=== PATIENT | male | born 1950 | race Caucasian/White ===

== ENCOUNTER 2019-10-17 08:00 | Outpatient (CLI) | payer MEDICARE, OTHER, SELFPAY ==
--- NOTE | 2019-10-17 08:25 | XR_ITS ---
WS: [id number] PROCEDURE: XR chest 2V* [id number] CLINICAL INFORMATION: PNEUMONIA COMPARISON: June 16, 2018 FINDINGS: Heart: Normal cardiac silhouette. Lungs: Small left pleural effusion with subsegmental atelectasis left lung base. Slight patchy infilt rate visualized on the lateral view posteriorly. Correlation for pneumonia. Right lung is well aerated. Mild thoracic curve. Ankylosis thoracic spine. Bones: Normal visualized bony structures. XR/XR chest 2V* [id number] IMPRESSION: Small left pleural effusion with slight patchy infiltrate left lung base mechanic helper iorly. Recommend correlation for pneumonia.
== END 2019-10-17 08:01 | disposition home or self-care (01) ==
LOC: RADWPI 08:08
PROVIDERS: Family Provider Family Medicine; PCP Family Medicine; Visit Provider Family Medicine
DX: J18.9 Pneumonia, unspecified organism (principal); J90 Pleural effusion, not elsewhere classified
CPT/HCPCS: 71046

== ENCOUNTER 2020-02-18 07:42 | Outpatient (CLI) | payer MEDICARE, OTHER, SELFPAY ==
--- NOTE | 2020-02-18 | MR_ITS ---
WS: [id number] INDICATION: Osteomyelitis TECHNIQUE: MRI of the right foot without and with gadolinium enhancement. Multiplanar T1, T2, proton density, and STIR imaging was obtained. Post gadolinium imaging was obtained with fat saturation tech nique FINDINGS: Images are somewhat limited due to motion artifact. Diffuse soft tissue edema with skin thi ckening and enhancement involving the soft tissues overlying the great toe consistent with cellulitis . Diffuse replacement of the normal fatty bone marrow signal involving the great toe proximal and dista l phalanx with diffuse abnormal gadolinium enhancement. In addition enhancing phlegmon/abscess involv ing the first DIP joint extending medially along the great toe. This collection appears complex and d oes not appear drainable. Findings are compatible with osteomyelitis involving the first proximal and distal phalanx. Tiny amount of edema in the head of the first metatarsal medially likely reactive. N o significant fluid in the first MTP joint. Degenerative arthritis involving the head of the first metatarsal with subchondral cystic change. Nor mal bone marrow signal is preserved. MR/MR foot RT wo/w con [id number] IMPRESSION: 1. Replacement of the normal bone marrow signal compatible with osteomyelitis involving the first proximal and distal phalanges. 2. In addition, complex enhancing phlegmon/abscess involving the first DIP mesfin nt. This measures approximately 1.4 x 1.1 cm extending medially This is complex and does not appear drainable. 3. Diffuse cellulitis involving the soft tissues overlying the great toe.
== END 2020-02-18 07:43 | disposition home or self-care (01) ==
LOC: RADSHAW 07:46
PROVIDERS: PCP Family Medicine; Visit Provider Family Medicine
DX: M86.171 Other acute osteomyelitis, right ankle and foot (principal); L03.031 Cellulitis of right toe
CPT/HCPCS: 73720; A9579

== ENCOUNTER → 2020-02-19 17:10 | Outpatient (BNVA) | payer MEDICARE, OTHER, SELFPAY | PROVIDERS: PCP Family Medicine; Referring Provider Family Medicine; Visit Provider Podiatrist Foot & Ankle Surgery | DX: E11.621 Type 2 diabetes mellitus with foot ulcer (principal); L97.509 Non-pressure chronic ulcer of other part of unspecified foot with unspecified severity; L03.031 Cellulitis of right toe; Z11.59 Encounter for screening for other viral diseases; M79.89 Other specified soft tissue disorders | CPT/HCPCS: 73630; 87070; 87075; 87077; 87186; 87205; 87635 ==

== ENCOUNTER 2020-02-20 07:33 | Day surgery (SDC) | payer MEDICARE, OTHER, SELFPAY ==
--- NOTE | 2020-02-20 08:15 | ECG_ITS ---
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 Measurements Intervals [place] Rate: 61 P: 20 MO: 235 QRS: 40 QRSD: 97 T: 23 QT: 397 QTc: 401 Interpretive Statements SINUS RHYTHM WITH FIRST DEGREE AV BLOCK No previous ECG available for comparison Electronically Signed On 02-20-2020 20:37:27 CDT by Derian Yuen M.D. [id number]
[2020-02-20 08:21] VITALS: BP 164/78; PULSE 63; RESP 18; TEMP 36.6; O2SAT 99; BMI 38.1
[2020-02-20 08:21] LABS: Glucose Point of Care 103 mg/dL (70-110)
[2020-02-20 08:29] LABS: Basophils # 0.1 10^3/uL (0.0-0.1); Basophils % 0.9 %; Eosinophils # 0.1 10^3/uL (0.0-0.8); Eosinophils % 1.6 %; Hematocrit 40.9 % (42.0-52.0); Hemoglobin 12.7 g/dL (11.7-16.6); Lymphocytes # 2.1 10^3/uL (0.8-4.8); Lymphocytes % 32.2 %; Mean Corpuscular HGB Conc 31.1 g/dL (30.0-36.0); Mean Corpuscular Hemoglobin 27.5 pg (28.0-34.0); Mean Corpuscular Volume 88.5 fL (80-94); Mean Platelet Volume 10.9 fL (7.4-10.4); Monocytes # 0.6 10^3/uL (0.2-0.9); Monocytes % 9.1 %; Neutrophils % 55.9 %; Nucleated Red Blood Cells % 0 %; Platelet Count 234 10^3/cmm (130-400); Red Blood Count 4.62 10^6/uL (4.1-5.3); Red Cell Distribution Width 14.1 % (12.1-15.1); White Blood Count 6.5 10^3/uL (4.0-10.0)
[2020-02-20] MEDS: sodium chloride 0.9% 1,000 ML 30 ML IV (08:30)
--- NOTE | 2020-02-20 08:46 | ANES.PREANE2 ---
Pre-Anesthetic Assessment Pre-Anesthetic Assessment: Height/Weight: Height 1.85 m Weight 131.088 kg Temp Pulse Resp BP Pulse Ox 97.9 F 63 18 164/78 99 02/20/20 08:21 02/20/20 08:21 02/20/20 08:21 02/20/20 08:21 02/20/20 08:21 Preop Diagnosis: Osteomyelitis right hallux Proposed Procedure: Operation Date: 02/20/20 09:00 Proposed Procedures p Incision And Drainage w/ bone biopsy right foot 00880 I97.509(Right) - Rafael Cardoza DPM Familial anesthetic complications: None Was Beta Jose taken within 24 hours: Yes Last intake: Intake Last Liquid Date 02/19/20 Last Liquid Time 23:30 Last Solid Date 02/19/20 Last Solid Time 22:30 Social: Social History: No alcohol and No tobacco Exam: Pre-Anes Outpt Exam: alert, oriented x 3, clear to auscultation bilaterally and regular rate & rhythm Airway: Cervical ROM: WNL MP: 2 Dentition: Full Pulmonary: Pulmonary: None reported CV/HEM: CV/HEM: CAD (stents in 2005, only on ASA now, no chest pains, able to achieve > 4 METS) and HTN : : None reported Hepatic: Hepatic: None reported Metabolic: Metabolic: None reported Musc/skel: Musc/skel: None reported Neuropsych: Neuropsych: None reported Anesthetic Plan: ASA status: 3 Anesthesia: MAC Risk of > 500 ml blood loss (7ml/kg in children): No Meds/Allergies Current Medications: Current Medications Generic Name Dose Route Start Last Admin Trade Name Freq PRN Reason Stop Dose Admin Sodium Chloride 1,000 mls @ 30 ml s/hr 02/20/20 08:00 02/20/20 08:30 Sodium Chloride 0.9% IV 02/21/20 07:59 30 mls/hr .Q24H FRANDY Administration PFSH Anesthesia PFSH: Medical History (Updated 02/19/20 @ 20:11 by Rafael Cardoza DPM) Coronary artery disease involving autologous artery coronary bypass graft Gout Hyperlipidemia Hypertension Pneumonia Social History (Updated 02/19/20 @ 16:08 by Gilma Sheppard LPN) Smoking and tobacco status: former smoker Data Anesthesia CBC & Chem 7: 02/20/20 08:20 10/23/20 08:20 Other Labs: Laboratory Results - last 48 hr 02/20/20 02/20/20 08:18 08:20 WBC 6.5 RBC 4.62 Hgb 12.7 Hct 40.9 L MCV 88.5 MCH 27.5 L MCHC 31.1 RDW 14.1 Plt Count 234 MPV 10.9 H Neut % (Auto) 55.9 Lymph % (Auto) 32.2 [place] % (Auto) 9.1 Eos % (Auto) 1.6 Baso % (Auto) 0.9 Neut # (Auto) 3.60 Lymph # (Auto) 2.1 [place] # (Auto) 0.6 Eos # (Auto) 0.1 Baso # (Auto) 0.1 Nucleated RBC % (auto) 0 Nucleated RBCs # 0.0 POC Glucose 103 Cardiac Studies: No Data to Display
[2020-02-20 08:48] LABS: Anion Gap 14.7 (5-19); Blood Urea Nitrogen 15 mg/dL (8-23); Calcium 9.3 mg/dL (8.5-10.5); Carbon Dioxide 22 mmol/L (22-29); Chloride 103 mmol/L (98-107); Glomerular Filtration Rate 96.1 mL/min (90-130); Glucose 105 mg/dL (65-115); Osmolality Calculated 281 mOsm/kg (285-295); Potassium 4.7 mmol/L (3.5-5.1); Sodium 135 mmol/L (136-145)
--- NOTE | 2020-02-20 10:01 | W.PM.OPSUD ---
Surgery/Procedure H&P Update DATE OF PROCEDURE: February 20, 2020 DATE H&P PERFORMED: 02/19/20 H&P UPDATE INFORMATION: I have reviewed H&P completed within last 30 days, I have examined patient prior to procedure, No changes to prior documentation and H&P is in [facility] [place] on date indicated PREOP DIAGNOSIS: Osteomyelitis right hallux PLANNED PROCEDURE: Operation Date: 02/20/20 09:00 Proposed Procedures p Incision And Drainage w/ bone biopsy right foot 67852 I97.509(Right) - Rafael Cardoza DPM
--- NOTE | 2020-02-20 10:28 | P.MISC_ITS ---
Miscellaneous Note Note: Patient: TRAVIS Jack VISHNU ID: [id number] Note: All result statuses are Final unless otherwise noted. Patient Note: FASTING:UNKNOWN Patient Note: Patient Note: FASTING: UNKNOWN Tests: (1) CULTURE, AEROBIC BACTERIA (4550) ! CULTURE, AEROBIC BACTERIA [A] * *1 CULTURE, AEROBIC BACTERIA Micro Number: [id number] Test Status: Final Specimen Source: FOOT, RIGHT Specimen Quality: Adequate Result: Heavy growth of Myroides species COMMENT: Skin maria victoria also present. Myroides sp. INT LIAM CEFEPIME I 16 CEFTAZIDIME R >=64 CIPROFLOXACIN S 1 GENTAMICIN R >=16 IMIPENEM I 4 LEVOFLOXACIN S 0.5 PIP/TAZOBACTAM I 32 TOBRAMYCIN R >=16 TRIMETHOPRIM/SULFA R >=320 S=Susceptible I=Intermediate R=Resistant * = Not Tested NR = Not Reported NN = See Therapy Comments Note: An exclamation matt (!) indicates a result that was not dispersed into the flowsheet. Document Creation Date: 02/16/2020 12:50 PM (1) Order result status: Final Collection or observation date-time: 02/12/2020 08:56:00 Requested date-time: Receipt date-time: 02/12/2020 08:59:00 Reported date-time: 02/16/2020 12:40:00 Referring Physician: Ordering Physician: KENNEDY Andrewsjspurcecelia) Specimen Source: Source: LAB Filler Order Number: [id number] Lab site: [place] [facility] [place] [id number] [facility] [id number] Maurisio Ham D.O.
--- NOTE | 2020-02-20 10:33 | PM.MISC ---
Miscellaneous Note Note: Patient: TRAVIS Jack VISHNU ID: OMID [id number] Note: All result statuses are Final unless otherwise noted. Patient Note: FASTING:UNKNOWN Patient Note: Patient Note: FASTING: UNKNOWN Tests: (1) CULTURE, AEROBIC BACTERIA (4550) ! CULTURE, AEROBIC BACTERIA [A] * *1 CULTURE, AEROBIC BACTERIA Micro Number: [id number] Test Status: Final Specimen Source: FOOT, RIGHT Specimen Quality: Adequate Result: Heavy growth of Staphylococcus aureus Heavy growth of Group B Streptococcus isolated Beta-hemolytic streptococci are predictably susceptible to Penicillin and other beta-lactams. Susceptibility testing not routinely performed. Please contact the laboratory within 3 days if susceptibility testing is desired. COMMENT: Additional organisms of questionable significance were isolated that normally do not warrant identification and susceptibilities. Please contact the laboratory within three days if identification and susceptibilities are clinically indicated. S.aureus INT LIAM CIPROFLOXACIN S <=0.5 CLINDAMYCIN S <=0.25 ERYTHROMYCIN S <=0.25 GENTAMICIN S <=0.5 LEVOFLOXACIN S <=0.12 MOXIFLOXACIN S <=0.25 OXACILLIN S <=0.25 1 TETRACYCLINE S <=1 TRIMETHOPRIM/SULFA S <=10 VANCOMYCIN S 1 S=Susceptible I=Intermediate R=Resistant * = Not Tested NR = Not Reported NN = See Therapy Comments THERAPY COMMENTS Note 1: Oxacillin-susceptible staphylococci are susceptible to other penicillinase-stable penicillins (e.g. Methicillin, Nafcillin), beta- lactam/beta-lactamase inhibitor combinations, and cephems with staphylococcal indications, including Cefazolin. Note: An exclamation matt (!) indicates a result that was not dispersed into the flowsheet. Document Creation Date: 02/07/2020 11:28 AM (1) Order result status: Final Collection or observation date-time: 02/03/2020 10:42:00 Requested date-time: Receipt date-time: 02/03/2020 10:46:00 Reported date-time: 02/07/2020 11:21:00 Referring Physician: Ordering Physician: GLEN ZAYAS ([email or web address]) Specimen Source: Source: LAB Filler Order Number: [id number] Lab site: [facility] [id number] [facility] [id number] Francisco J Mccarthy D.O., MPH Supply Chain Specialist ID *[id number]
--- NOTE | 2020-02-20 10:41 | XRR_ITS ---
PROCEDURE INFORMATION: Exam: XR Right Foot Complete Exam date and time: 02/20/2020 11:20 AM Age: 69 years old Clinical indication: Pain; Foot; Right; Prior surgery; Surgery date: Post-operative (0-2 days); Surgery type: RT great toe; Patient HX: Osteomyelitis; Additional info: Post op TECHNIQUE: Imaging protocol: XR Right foot. Views: 3 or more views. COMPARISON: CR XR foot RT min 3V* [id number] 02/19/2020 4:34 PM FINDINGS: Bones/joints: There are bony destructive changes involving the head of the proximal phalanx and the distal phalanx which are consistent with history of osteomyelitis.Chronic degenerative changes are present in the foot with joint space narrowing osteophyte formation and bunion. There is chronic spurring on the calcaneus. Soft tissues: Gas is present in the soft tissues of the 1st toe. XR/XR foot RT min 3V* [id number] IMPRESSION: There is gas in the soft tissues of the 1st toe with destruction of changes of the proximal and distal phalanx is consistent with the history of osteomyelitis.
--- NOTE | 2020-02-20 11:02 | XRR_ITS ---
PROCEDURE INFORMATION: Exam: XR Chest, 1 View Exam date and time: 02/20/2020 11:16 AM Age: 69 years old Clinical indication: Device placement; Picc; Additional info: Picc placement TECHNIQUE: Imaging protocol: XR of the chest Views: 1 view. COMPARISON: CR XR chest 2V* [id number] 10/17/2019 8:29 AM FINDINGS: Tubes, catheters and devices: The right arm PICC projects in satisfactory position. Lungs: Unremarkable. No consolidation. Pleural space: Unremarkable. No pleural effusion. No pneumothorax. Heart/Mediastinum: Unremarkable. No cardiomegaly. Bones/joints: Unremarkable. XR/XR chest 1V portable [id number] IMPRESSION: Satisfactory PICC position. No acute abnormality.
[2020-02-20 11:04] VITALS: BP 112/74; PULSE 54; RESP 18; TEMP 36.1; O2SAT 99
[2020-02-20 11:26] VITALS: BP 141/81; PULSE 60; RESP 18; O2SAT 99
--- NOTE | 2020-02-20 11:44 | PC.NURSE ---
Been in touch with Dr Cardoza and Dr Murillo's nurse. Pt will have first dose of IV Rochephin 2 gm Q24H here before he leaves today via PICC line. Dr Murillo's nurse is setting up HH services through [facility] and they will continue with infusions at home. Patient and updated with plan of care and aggreeable.
--- NOTE | 2020-02-20 12:30 | ANE.PACU2 ---
Inpatient post-anesthesia follow up: Airway intact: Yes Vital signs: Temperature 97 F Pulse Rate 60 Respiratory Rate 18 Blood Pressure 141/81 Pulse Oximetry 99 Oxygen Delivery Me thod Room Air Oxygen Flow Rate Fraction of Inspir ed Oxygen Hydration adequate: Yes Nausea and vomiting: No Pain level: 1 Mental status: Baseline
--- NOTE | 2020-02-20 17:47 | P.OP_ITS ---
Operative Report Date of procedure: February 20, 2020 Pre-op Diagnosis: Osteomyelitis right hallux Post-op diagnosis: same Post-op Findings: Osteomyelitis right hallux Procedure Done: Incision and debridement right foot with bone biopsy Implants: 4-0 nylon Specimens removed/disposition: Right hallux proximal phalanx head sent to microbiology for Gram stain and culture Pathology: none sent Surgeon: Rafael Cardoza D.P.M. 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 He is not diabetic he does have decreased protective sensation. History of gout as well. X-ray and MRI consistent with osteomyelitis at the right hallux both distal and proximal phalanx with drainable fluid at the hallux interphalangeal joint on MRI. On exam he has a wound with a sinus tract dorsally and plantarly that probes to bone on the right hallux. Recommended surgical debridement, bone biopsy and PICC line placement for parenteral antibiotics long-term will require minimum 6 weeks in effort to preserve limb, this may result in amputation patient is aware this and wishes to proceed. Risks include pain, bleeding, numbness, infection, chronic swelling, failure to eradicate infection, need for further debridement, need for amputation, need for antibiotic therapy, damage to adjacent soft tissue structures, transfer pressure and transfer lesions. Procedure: Under mild sedation the patient was brought to the operating room and placed on the operating table in supine position. A timeout was performed. Anesthesia was then administered by the anesthesia service. Local anesthesia injected by myself consisting of 20 cc of 0.5% Marcaine plain and a right Colon block fashion. Well-padded pneumatic tourniquet applied to the right ankle. The right lower remedy was then scrubbed, prepped and draped utilizing normal aseptic technique. No Esmarch examination performed, tourniquet was inflated to 250 mmHg. Attention was directed to the dorsal medial aspect of the right hallux, a wound with a sinus tract or coursing dorsally was appreciated this probes directly to bone with localized erythema to the hallux without proximal lymphangitic streaking. At the superior medial aspect of the right hallux at the level interphalangeal joint a linear longitudinal incision was made down to bone, sagittal saw utilized to transect the base of the distal phalanx and head of the proximal phalanx, rongeur utilized to excise the head of the proximal phalanx this was devitalized had poor density and yellow/espinal color this was sent to microbiology for Gram stain and culture. Further debridement performed of nonviable soft tissue and bone sharp in nature utilizing pickups and 15 blade as well as rongure. Incision site was flushed with copious amounts of sterile saline solution. Incision was then reapproximated utilizing 4-0 nylon. Incision site was dressed with Adaptic, sterile 4 x 4, Kerlix and Terell wrap, cam boot reapplied. Tourniquet was deflated and a prompt hyperemic response was noted to the distal digits of the right foot including the hallux. Patient tolerated the procedure well and was transferred to the PACU with vital signs stable and vascular status intact. Also noted patient will receive PICC line for long-term antibiotics minimum [address] Workman will be managing the antibiotic therapies. Planning on following the patient on a weekly basis will perform serial x-rays and trend inflammatory markers to monitor his response to treatment.
== END 2020-02-20 12:32 | disposition home or self-care (01) ==
PROVIDERS: Anesthesiology; PCP Family Medicine; Visit Provider Podiatrist Foot & Ankle Surgery
PROC: (CPT 11044; principal; 2020-02-20 08:50)
DX: M86.8X7 Other osteomyelitis, ankle and foot (principal); I25.10 Atherosclerotic heart disease of native coronary artery without angina pectoris; Z95.5 Presence of coronary angioplasty implant and graft; I10 Essential (primary) hypertension; E78.5 Hyperlipidemia, unspecified; Z87.891 Personal history of nicotine dependence
CPT/HCPCS: 11044; 12345; 36416; 36569; 71045; 73630; 80048; 82962; 85025; 87070; 87077; 87176; 87186; 87205; 93005; 96365; J0690; J2250; J2704; J3490; J7030

== ENCOUNTER → 2020-02-27 09:21 | Outpatient (BNVA) | payer MEDICARE, OTHER, SELFPAY | PROVIDERS: PCP Family Medicine; Visit Provider Podiatrist Foot & Ankle Surgery | DX: L97.514 Non-pressure chronic ulcer of other part of right foot with necrosis of bone (principal); L03.031 Cellulitis of right toe; M21.611 Bunion of right foot | CPT/HCPCS: 73630 ==

== ENCOUNTER 2020-02-27 10:03 | Outpatient (RCR) | payer MEDICARE, OTHER, SELFPAY ==
[2020-02-24] MEDS: cefTRIAXone 2,000 MG in sodium chloride 0.9% (plus) 50 ML 100 MG IV (13:17)
[2020-02-24 13:20] VITALS: BP 144/70; PULSE 70; RESP 18; TEMP 37.2; O2SAT 98
[2020-02-24 13:23] VITALS: BMI 37.8
[2020-02-25] MEDS: cefTRIAXone 2,000 MG in sodium chloride 0.9% (plus) 50 ML 100 MG IV (09:06)
[2020-02-25 09:08] VITALS: BP 160/76; PULSE 63; RESP 18; TEMP 36.6; O2SAT 98
[2020-02-26] MEDS: cefTRIAXone 2,000 MG in sodium chloride 0.9% (plus) 50 ML 100 MG IV (09:00)
[2020-02-26 09:21] VITALS: BP 162/75; PULSE 72; RESP 18; TEMP 36.6; O2SAT 98
[2020-02-27] MEDS: cefTRIAXone 2,000 MG in sodium chloride 0.9% (plus) 50 ML 100 MG IV (10:16)
[2020-02-27 10:17] VITALS: BP 155/80; PULSE 78; RESP 18; TEMP 37.2; O2SAT 97
[2020-02-28] MEDS: cefTRIAXone 2,000 MG in sodium chloride 0.9% (plus) 50 ML 100 MG IV (08:25)
[2020-02-28 08:44] VITALS: BP 159/87; PULSE 65; RESP 18; TEMP 37.2; O2SAT 98
== END 2020-02-28 23:59 | disposition home or self-care (01) ==
LOC: OPS 10:03
PROVIDERS: PCP Family Medicine; Visit Provider Family Medicine
DX: M86.8X7 Other osteomyelitis, ankle and foot (principal)
CPT/HCPCS: 15852; 96365; J0696

== ENCOUNTER → 2020-03-09 08:42 | Outpatient (BNVA) | payer MEDICARE, OTHER, SELFPAY | PROVIDERS: PCP Family Medicine; Visit Provider Podiatrist Foot & Ankle Surgery | DX: L97.514 Non-pressure chronic ulcer of other part of right foot with necrosis of bone (principal); Z48.89 Encounter for other specified surgical aftercare; L03.031 Cellulitis of right toe | CPT/HCPCS: 73630 ==

== ENCOUNTER 2020-03-11 06:00 | Day surgery (SDC) | payer MEDICARE, OTHER, SELFPAY ==
[2020-03-10 09:10] VITALS: BMI 38.1
[2020-03-11 06:12] VITALS: BP 166/86; PULSE 55; RESP 18; TEMP 36.3; O2SAT 98
--- NOTE | 2020-03-11 06:26 | W.PM.OPSUD ---
Surgery/Procedure H&P Update DATE OF PROCEDURE: March 11, 2020 DATE H&P PERFORMED: 03/09/20 H&P UPDATE INFORMATION: I have reviewed H&P completed within last 30 days, I have examined patient prior to procedure, No changes to prior documentation and H&P is in [facility] EMR on date indicated PREOP DIAGNOSIS: Osteomyelitis right great toe PLANNED PROCEDURE: Operation Date: 03/11/20 07:00 Proposed Procedures p Incision And Drainage of nonviable muscle tendon and bone left foot 02330 31840 L97.514(Left) - Rafael Cardoza DPM s Insertion Antibiotic impregnated cement spacer(Left) - Rafael Cardoza DPM
--- NOTE | 2020-03-11 06:27 | P.OP_ITS ---
Operative Report Date of procedure: March 11, 2020 Pre-op Diagnosis: Osteomyelitis right great toe Post-op diagnosis: same Post-op Findings: Osteomyelitis right hallux Procedure Done: Incision And Drainage of nonviable muscle tendon and bone left foot CPT code 79072 Insertion Antibiotic impregnated cement spacer CPT code 15258 Implants: Simplex P with tobramycin and vancomycin, 4-0 nylon Specimens removed/disposition: None Pathology: none sent Surgeon: Rafael Cardoza D.P.M. Tune Up Mechanic: King Anesthesia: MAC Estimated blood loss: 10 mL Tourniquet time: No tourniquet utilized IV fluids: None Urine output: None Complications: None Findings: Devitalized distal and proximal phalanx right hallux. Condition: stable Disposition: PACU Brief History: Patient is 3 weeks status post I&D and bone biopsy secondary to osteomyelitis right hallux. PICC line in place receiving IV Rocephin and oral Levaquin. Repeat x-rays demonstrated further erosive changes and osteolysis to the right hallux interphalangeal joint. Recommended repeat debridement and insertion of antibiotic impregnated cement spacer. Risks include pain, bleeding, numbness, infection, need for further surgical debridement, antibiotic therapy and risk for amputation. Patient is agreeable wishes to proceed. Procedure: Under mild sedation the patient was brought to the operating room and placed on the operating table in supine position. Timeout was performed. Anesthesia was administered by the anesthesia service. Local anesthesia injected by myself 20 cc of one-to-one mixture 1% lidocaine and 0.5% Marcaine plain and a right Colon block fashion. Well-padded pneumatic tourniquet applied to the right ankle this was never inflated or utilized throughout the duration of the procedure. Right lower extremity was scrubbed, prepped and draped utilizing normal aseptic technique. Attention was directed to the medial aspect of the right hallux where over the previous incision a #15 blade was utilized to deepen the incision down to bone. Self-retaining wheat [place] retractor employed and a sagittal saw was utilized to resect the base of the distal phalanx and head of the proximal phalanx this was removed from the operative field. Incision site was irrigated with copious amounts of sterile saline solution. No further devitalized soft tissue or bone was appreciated, bone appeared healthy with healthy bleeding. Void was filled with Simplex P with tobramycin and additive of 500 mg of vancomycin. Incision site was closed utilizing 4-0 nylon. Incision site was then dressed utilizing Adaptic, sterile 4 x 4, Lei and [place]. Patient tolerated the procedure well and was transferred to the PACU with vital signs stable and vascular status intact. Following a period of postoperative monitoring he will be discharged home is to rest and elevate his right foot utilize a cam boot when ambulating continue antibiotic regimen currently prescribed. Will follow up in podiatry clinic 03/18/2020.
[2020-03-11] MEDS: sodium chloride 0.9% 1,000 ML 30 ML IV (06:31)
--- NOTE | 2020-03-11 06:32 | ANES.PREANE2 ---
Pre-Anesthetic Assessment Pre-Anesthetic Assessment: Height/Weight: Height 1.85 m Weight 131.088 kg Temp Pulse Resp BP Pulse Ox 97.3 F L 55 L 18 166/86 98 03/11/20 06:12 03/11/20 06:12 03/11/20 06:12 03/11/20 06:12 03/11/20 06:12 Preop Diagnosis: Osteomyelitis right great toe Proposed Procedure: Operation Date: 03/11/20 07:00 Proposed Procedures p Incision And Drainage of nonviable muscle tendon and bone left foot 48173 49236 L97.514(Left) - Rafael Cardoza DPM s Insertion Antibiotic impregnated cement spacer(Left) - Rafael Cardoza DPM Was Beta Jose taken within 24 hours: Yes Last intake: Intake Last Liquid Date 03/10/20 Last Liquid Time 22:00 Last Solid Date 03/10/20 Last Solid Time 21:30 Social: Social History: No alcohol and No tobacco Exam: Pre-Anes Outpt Exam: alert, oriented x 3, clear to auscultation bilaterally and regular rate & rhythm Airway: Submandibular: WNL and Other Cervical ROM: Other (Limited CROM; obese/short neck ) MP: 3 Pulmonary: Pulmonary: None reported CV/HEM: CV/HEM: CAD and HTN Comments: s/p single coronary stent in 2005; no symptoms since then : : None reported Hepatic: Hepatic: None reported GI: GI: None reported Metabolic: Metabolic: Morbid obesity Comments: Gout Musc/skel: Musc/skel: None reported Neuropsych: Neuropsych: None reported Anesthetic Plan: ASA status: 3 Anesthesia: MAC Meds/Allergies Current Medications: Current Medications Generic Name Dose Route Start Last Admin Trade Name Freq PRN Reason Stop Dose Admin Sodium Chloride 1,000 mls @ 30 ml s/hr 03/11/20 06:15 03/11/20 06:31 Sodium Chloride 0.9% IV 03/12/20 06:14 30 mls/hr .Q24H FRANDY Administration PFSH Anesthesia PFSH: Medical History Coronary artery disease involving autologous artery coronary bypass graft Gout Hyperlipidemia Hypertension Pneumonia Social History Smoking and tobacco status: former smoker Data Anesthesia Cardiac Studies: No Data to Display
[2020-03-11] MEDS: vancomycin 1,000 MG SDV 1000 MG XX (07:10)
[2020-03-11 07:36] VITALS: BP 148/86; PULSE 61; RESP 18; TEMP 36.3; O2SAT 97
--- NOTE | 2020-03-11 07:41 | XR_ITS ---
WS: [id number] Right foot, 3 views, 03/11/2020 Clinical Data: post op Comparison: Right foot, 03/09/2020. Findings: There is artificial material which has been inserted into the right great toe IP joint. The bunion of the head of the right first metatarsal remains the same.. There is a plantar spur and an Achilles spur. XR/XR foot RT min 3V* [id number] Impression: Insertion of artificial material into the right great toe IP joint.
[2020-03-11 08:06] VITALS: BP 126/65; PULSE 57; RESP 18; TEMP 36.3; O2SAT 99
--- NOTE | 2020-03-11 08:15 | ANE.PACU2 ---
Inpatient post-anesthesia follow up: Airway intact: Yes Vital signs: Temperature 97.4 F Pulse Rate 61 Respiratory Rate 18 Blood Pressure 148/86 Pulse Oximetry 97 Oxygen Delivery Me thod Room Air Oxygen Flow Rate Fraction of Inspir ed Oxygen Hydration adequate: Yes Nausea and vomiting: No Pain level: 1 Mental status: Baseline
== END 2020-03-11 08:25 | disposition home or self-care (01) ==
PROVIDERS: PCP Family Medicine; Visit Provider Podiatrist Foot & Ankle Surgery
PROC: (CPT 11044; principal; 2020-03-11 07:00)
PROC: (CPT 11044; 2020-03-11 07:00)
DX: L97.514 Non-pressure chronic ulcer of other part of right foot with necrosis of bone (principal); L03.031 Cellulitis of right toe; M86.8X7 Other osteomyelitis, ankle and foot; I10 Essential (primary) hypertension; I25.810 Atherosclerosis of coronary artery bypass graft(s) without angina pectoris; E78.5 Hyperlipidemia, unspecified; Z79.82 Long term (current) use of aspirin; Z87.891 Personal history of nicotine dependence
CPT/HCPCS: 11044; 11981; 12345; 73630; J0690; J2001; J2405; J2704; J3010; J3370; J3490; J7030

== ENCOUNTER 2020-03-29 13:07 | Outpatient (RCR) | payer MEDICARE, OTHER, SELFPAY ==
[2020-02-29] MEDS: cefTRIAXone 2,000 MG in sodium chloride 0.9% (plus) 50 ML 100 MG IV (08:37)
[2020-02-29 09:22] VITALS: BP 144/80; PULSE 63; RESP 18; TEMP 36.8; O2SAT 97; BMI 37.8
--- NOTE | 2020-02-29 09:25 | SUR.PREOP ---
patient dressing bled through at toe incision. small amount of drainage on dressing. dressing changed, new 2x2 gauze and kerlix wrap applied.
[2020-03-01] MEDS: cefTRIAXone 2,000 MG in sodium chloride 0.9% (plus) 50 ML 100 MG IV (09:12)
[2020-03-01 09:16] VITALS: BP 157/68; PULSE 59; RESP 20; TEMP 36.4; O2SAT 99
[2020-03-02] MEDS: cefTRIAXone 2,000 MG in sodium chloride 0.9% (plus) 50 ML 100 MG IV (09:06)
[2020-03-02 09:07] VITALS: BP 141/75; PULSE 57; RESP 18; TEMP 36.3; O2SAT 98
[2020-03-03] MEDS: cefTRIAXone 2,000 MG in sodium chloride 0.9% (plus) 50 ML 100 MG IV (08:59)
[2020-03-03 09:00] VITALS: BP 160/83; PULSE 58; RESP 18; TEMP 37.1; O2SAT 97
[2020-03-04] MEDS: cefTRIAXone 2,000 MG in sodium chloride 0.9% (plus) 50 ML 100 MG IV (09:00)
[2020-03-04 09:06] VITALS: BP 169/83; PULSE 69; RESP 18; TEMP 36.7; O2SAT 98
[2020-03-05] MEDS: cefTRIAXone 2,000 MG in sodium chloride 0.9% (plus) 50 ML 100 MG IV (09:05)
[2020-03-05 09:47] VITALS: BP 150/75; PULSE 69; RESP 18; TEMP 36.9; O2SAT 97
[2020-03-06 09:18] VITALS: BP 161/91; PULSE 64; RESP 18; TEMP 36.6; O2SAT 98
[2020-03-06] MEDS: cefTRIAXone 2,000 MG in sodium chloride 0.9% (plus) 50 ML 100 MG IV (09:18)
[2020-03-07] MEDS: cefTRIAXone 2,000 MG in sodium chloride 0.9% (plus) 50 ML 100 MG IV (09:01)
[2020-03-07 09:42] VITALS: BP 143/69; PULSE 68; RESP 18; TEMP 37.1; O2SAT 97
[2020-03-08] MEDS: cefTRIAXone 2,000 MG in sodium chloride 0.9% (plus) 50 ML 100 MG IV (09:05)
[2020-03-08 09:06] VITALS: BP 151/87; PULSE 67; RESP 18; TEMP 36.6; O2SAT 98
[2020-03-09] MEDS: cefTRIAXone 2,000 MG in sodium chloride 0.9% (plus) 50 ML 100 MG IV (09:14)
[2020-03-09 09:15] VITALS: BP 142/74; PULSE 62; RESP 18; TEMP 36.8; O2SAT 96
[2020-03-10] MEDS: cefTRIAXone 2,000 MG in sodium chloride 0.9% (plus) 50 ML 100 MG IV (08:55)
[2020-03-10 09:41] VITALS: BP 167/94; PULSE 70; RESP 18; TEMP 37; O2SAT 98
[2020-03-11] MEDS: cefTRIAXone 2,000 MG in sodium chloride 0.9% (plus) 50 ML 100 MG IV (06:25)
[2020-03-12] MEDS: cefTRIAXone 2,000 MG in sodium chloride 0.9% (plus) 50 ML 100 MG IV (09:08)
[2020-03-12 09:09] VITALS: BP 125/81; PULSE 68; RESP 18; TEMP 36.8; O2SAT 98
[2020-03-13] MEDS: cefTRIAXone 2,000 MG in sodium chloride 0.9% (plus) 50 ML 100 MG IV (09:18)
[2020-03-13 09:19] VITALS: BP 145/91; PULSE 70; RESP 18; TEMP 36.3; O2SAT 98
[2020-03-14] MEDS: cefTRIAXone 2,000 MG in sodium chloride 0.9% (plus) 50 ML 100 MG IV (09:10)
[2020-03-14 09:13] VITALS: BP 152/84; PULSE 71; RESP 18; TEMP 36.8; O2SAT 98
[2020-03-15] MEDS: cefTRIAXone 2,000 MG in sodium chloride 0.9% (plus) 50 ML 100 MG IV (09:05)
[2020-03-15 09:32] VITALS: BP 151/83; PULSE 60; RESP 18; TEMP 36.3; O2SAT 98
[2020-03-16] MEDS: cefTRIAXone 2,000 MG in sodium chloride 0.9% (plus) 50 ML 100 MG IV (09:10)
[2020-03-16 09:29] VITALS: BP 136/97; PULSE 68; RESP 18; TEMP 36.5; O2SAT 98
[2020-03-17 09:06] VITALS: BP 160/96; PULSE 64; RESP 18; TEMP 36.1; O2SAT 98
[2020-03-17] MEDS: cefTRIAXone 2,000 MG in sodium chloride 0.9% (plus) 50 ML 100 MG IV (09:08)
[2020-03-18] MEDS: cefTRIAXone 2,000 MG in sodium chloride 0.9% (plus) 50 ML 100 MG IV (08:59)
[2020-03-18 09:02] VITALS: BP 132/67; PULSE 62; RESP 18; TEMP 36.3; O2SAT 97
[2020-03-19 08:57] VITALS: BP 163/99; PULSE 73; RESP 16; TEMP 36.3; O2SAT 98
[2020-03-19] MEDS: cefTRIAXone 2,000 MG in sodium chloride 0.9% (plus) 50 ML 100 MG IV (09:00)
[2020-03-20] MEDS: cefTRIAXone 2,000 MG in sodium chloride 0.9% (plus) 50 ML 100 MG IV (07:10)
[2020-03-20 07:44] VITALS: BP 189/91; PULSE 67; RESP 16; TEMP 36.4; O2SAT 98
[2020-03-21] MEDS: cefTRIAXone 2,000 MG in sodium chloride 0.9% (plus) 50 ML 100 MG IV (07:07)
[2020-03-21 07:15] VITALS: BP 172/88; PULSE 72; RESP 18; TEMP 37.1; O2SAT 98
[2020-03-22] MEDS: cefTRIAXone 2,000 MG in sodium chloride 0.9% (plus) 50 ML 100 MG IV (09:17)
[2020-03-22 09:19] VITALS: BP 182/82; PULSE 74; RESP 18; TEMP 36.3; O2SAT 98
[2020-03-23] MEDS: cefTRIAXone 2,000 MG in sodium chloride 0.9% (plus) 50 ML 100 MG IV (09:00)
[2020-03-23 09:15] VITALS: BP 156/81; PULSE 65; RESP 18; TEMP 36.6; O2SAT 98
[2020-03-24] MEDS: cefTRIAXone 2,000 MG in sodium chloride 0.9% (plus) 50 ML 100 MG IV (07:39)
[2020-03-24 08:06] VITALS: BP 172/85; PULSE 63; RESP 18; TEMP 36.7; O2SAT 97
[2020-03-25] MEDS: cefTRIAXone 2,000 MG in sodium chloride 0.9% (plus) 50 ML 100 MG IV (07:40)
[2020-03-25 08:01] VITALS: BP 177/93; PULSE 71; RESP 18; TEMP 36.4; O2SAT 98
[2020-03-26] MEDS: cefTRIAXone 2,000 MG in sodium chloride 0.9% (plus) 50 ML 100 MG IV (07:40)
[2020-03-26 08:25] VITALS: BP 205/91; PULSE 72; RESP 16; TEMP 36.6; O2SAT 99
--- NOTE | 2020-03-26 08:26 | SUR.PREOP ---
pt states that he wanted to wait until tomorrow to get dressing on foot changed although it was due today
[2020-03-27 07:36] VITALS: BP 186/94; PULSE 79; RESP 18; TEMP 37.2; O2SAT 95
[2020-03-27] MEDS: cefTRIAXone 2,000 MG in sodium chloride 0.9% (plus) 50 ML 100 MG IV (07:38)
[2020-03-27 08:01] VITALS: BP 152/84
[2020-03-29] MEDS: cefTRIAXone 2,000 MG in sodium chloride 0.9% (plus) 50 ML 100 MG IV (13:10)
[2020-03-29 13:11] VITALS: PULSE 73; RESP 18; TEMP 36.3; O2SAT 98
[2020-03-29 13:35] VITALS: BP 171/81
== END 2020-03-29 23:59 | disposition home or self-care (01) ==
LOC: OPS 13:07
PROVIDERS: PCP Family Medicine; Visit Provider Family Medicine
DX: L97.514 Non-pressure chronic ulcer of other part of right foot with necrosis of bone (principal); L03.031 Cellulitis of right toe; Z48.89 Encounter for other specified surgical aftercare; M86.8X7 Other osteomyelitis, ankle and foot; I10 Essential (primary) hypertension; I25.810 Atherosclerosis of coronary artery bypass graft(s) without angina pectoris; E78.5 Hyperlipidemia, unspecified; Z79.82 Long term (current) use of aspirin; Z87.891 Personal history of nicotine dependence
CPT/HCPCS: 15852; 73630; 87635; 96365; A6446; J0690; J0696; J2001; J2405; J2704; J3010; J3370; J3490; J7030

== ENCOUNTER 2020-04-02 08:28 | Outpatient (RCR) | payer MEDICARE, OTHER, SELFPAY ==
[2020-03-30] MEDS: cefTRIAXone 2,000 MG in sodium chloride 0.9% (plus) 50 ML 100 MG IV (07:45)
[2020-03-30 07:58] VITALS: BP 172/85; PULSE 70; RESP 18; TEMP 36.6; O2SAT 99; BMI 38.1
[2020-03-31] MEDS: cefTRIAXone 2,000 MG in sodium chloride 0.9% (plus) 50 ML 100 MG IV (07:45)
[2020-03-31 08:07] VITALS: BP 180/78; PULSE 78; RESP 18; TEMP 36.3; O2SAT 99
[2020-03-31 12:32] VITALS: BMI 38.1
[2020-04-01] MEDS: cefTRIAXone 2,000 MG in sodium chloride 0.9% (plus) 50 ML 100 MG IV (07:42)
[2020-04-01 09:46] VITALS: BP 163/78; PULSE 99; RESP 18; TEMP 36.3; O2SAT 99
[2020-04-02] MEDS: cefTRIAXone 2,000 MG in sodium chloride 0.9% (plus) 50 ML 100 MG IV (08:30)
--- NOTE | 2020-04-02 08:45 | XR_ITS ---
WS: [id number] Left foot, 3 views, 04/02/2020 Clinical Data: osteomyelitis, acute, lt foot Comparison: None. Findings: The patient has had an amputation of the distal portion of the proximal phalanx of the left great toe . There is artificial material inserted to fill the left first PIP joint. There is a large bunion of the head of the left first metatarsal. No definite bone destruction is seen. There are no fractures o r dislocations. No soft tissue swelling is seen. There is an Achilles spur and a plantar spur.
[2020-04-02 08:50] VITALS: BP 164/81; PULSE 65; RESP 18; TEMP 36.8; O2SAT 97
[2020-04-02 08:52] LABS: Basophils % 0.2 %; Eosinophils # 0.2 10^3/uL (0.0-0.8); Eosinophils % 2.7 %; Hematocrit 39.3 % (42.0-52.0); Hemoglobin 12.8 g/dL (11.7-16.6); Lymphocytes % 35.3 %; Mean Corpuscular HGB Conc 32.6 g/dL (30.0-36.0); Mean Corpuscular Hemoglobin 27.9 pg (28.0-34.0); Mean Corpuscular Volume 85.6 fL (80-94); Mean Platelet Volume 10.4 fL (7.4-10.4); Monocytes # 0.5 10^3/uL (0.2-0.9); Monocytes % 8.5 %; Neutrophils # 2.97 10^3/uL (1.8-7.7); Neutrophils % 52.8 %; Nucleated Red Blood Cells % 0 %; Platelet Count 173 10^3/cmm (130-400); Red Blood Count 4.59 10^6/uL (4.1-5.3); Red Cell Distribution Width 14.9 % (12.1-15.1); White Blood Count 5.6 10^3/uL (4.0-10.0)
[2020-04-02 09:22] LABS: C Reactive Protein 0.4 mg/L (0.0-4.9)
[2020-04-02 11:16] LABS: Erythrocyte Sedimentation Rate 9 mm/hr (0-10)
[2020-04-03 09:08] LABS: Alanine Aminotransferase 28 U/L (0-41); Albumin Level 4.1 g/dL (3.5-5.2); Alkaline Phosphatase 81 IU/L (40-130); Anion Gap 14.3 (5-19); Aspartate Amino Transferase 29 U/L (0-40); Blood Urea Nitrogen 12 mg/dL (8-23); Calcium 9.2 mg/dL (8.5-10.5); Carbon Dioxide 27 mmol/L (22-29); Chloride 103 mmol/L (98-107); Globulin 2.8 g/dL (1.3-4.6); Glomerular Filtration Rate 112.1 mL/min (90-130); Glucose 110 mg/dL (65-115); Osmolality Calculated 290 mOsm/kg (285-295); Potassium 4.3 mmol/L (3.5-5.1); Sodium 140 mmol/L (136-145); Total Bilirubin 0.2 mg/dL (0.15-1.2); Total Protein 6.9 g/dL (6.6-8.7)
--- NOTE | 2020-04-18 | XR_ITS ---
NOTE: Report was unsigned for reason: Order was edited. Original Signature date and time was: 04/02/20 @ [address] [address] XRay Report Signed Patient: Damon Padron Unit #: [id number] : 1950 Age/Sex: 69 / M ADM Date: 04/02/20 Loc: OPS Room/Bed: Attending Dr: Glen Murillo MD Ordering Provider/Ordering MD: Rafael Cardoza DPM Date of Service: 04/02/20 Procedure(s): XR foot RT min 3V* 53924 Accession Number(s): [id number] Report Number: [id number] WS: [id number] RIGHT foot, 3 views, 04/02/2020 Clinical Data: osteomyelitis, acute, RT foot Comparison: None. Findings: The patient has had an amputation of the distal portion of the proximal phalanx of the RIGHT great toe. There is artificial material inserted to fill the RIGHT first PIP joint. There is a large bunion of the head of the RIGHT first metatarsal. No definite bone destruction is seen. There are no fractures or dislocations. No soft tissue swelling is seen. There is an Achilles spur and a plantar spur. XR/XR foot RT min 3V* [id number] Impression: 1. Amputation of the distal portion of the proximal phalanx RIGHT great toe. 2. Artificial material inserted into the RIGHT first PIP joint. 3. Bunion at head of RIGHT first metatarsal. 4. No definite evidence of osteomyelitis. Dictated By: Eugenia Pak MD Signed By: Eugenia Pak MD Signed Date/Time: 09/15/21 1311 DD/ 1133 MTDD XR/XR foot RT min 3V* [id number] Impression: 1. Amputation of the distal portion of the proximal phalanx left great toe. 2. Artificial material inserted into the left first PIP joint. 3. Bunion at head of left first metatarsal. 4. No definite evidence of osteomyelitis.
== END 2020-04-29 23:59 | disposition home or self-care (01) ==
LOC: OPS 08:28
PROVIDERS: Podiatrist Foot & Ankle Surgery; PCP Family Medicine; Visit Provider Family Medicine
DX: M86.179 Other acute osteomyelitis, unspecified ankle and foot (principal)
CPT/HCPCS: 15852; 36415; 73630; 80048; 80053; 85025; 85651; 86140; 96365; J0696

== ENCOUNTER → 2020-04-19 13:16 | Outpatient (BNVA) | payer MEDICARE, OTHER, SELFPAY | PROVIDERS: PCP Family Medicine; Visit Provider Podiatrist Foot & Ankle Surgery | DX: M19.071 Primary osteoarthritis, right ankle and foot (principal); M79.671 Pain in right foot | CPT/HCPCS: 73630 ==

== ENCOUNTER → 2020-05-03 09:50 | Outpatient (BNVA) | payer MEDICARE, OTHER, SELFPAY | PROVIDERS: PCP Family Medicine; Visit Provider Nurse Practitioner Family | DX: Z20.828 Contact with and (suspected) exposure to other viral communicable diseases (principal); Z01.818 Encounter for other preprocedural examination | CPT/HCPCS: 87635 ==

== ENCOUNTER 2020-05-07 09:44 | Day surgery (SDC) | payer MEDICARE, OTHER, SELFPAY ==
[2020-05-07 10:51] VITALS: BP 179/94; PULSE 61; RESP 18; TEMP 36.1; O2SAT 97
--- NOTE | 2020-05-07 11:01 | ANES.PREANE2 ---
Pre-Anesthetic Assessment Pre-Anesthetic Assessment: Height/Weight: Height 1.85 m Weight 136.078 kg Temp Pulse Resp BP Pulse Ox 97 F L 61 18 179/94 97 05/07/20 10:51 05/07/20 10:51 05/07/20 10:51 05/07/20 10:51 05/07/20 10:51 Preop Diagnosis: Osteomyelitis right great toe Proposed Procedure: Operation Date: 05/07/20 11:10 Proposed Procedures p Incision and debridement with removal of cement spacer right foot [id number] [id number] L97.514(Right) - Rafael Cardoza DPM Familial anesthetic complications: None Was Beta Jose taken within 24 hours: Yes Last intake: Intake Last Liquid Date 05/06/20 Last Liquid Time 22:30 Last Solid Date 05/06/20 Last Solid Time 22:30 Social: Social History: No alcohol and No tobacco Exam: Pre-Anes Outpt Exam: alert, oriented x 3, clear to auscultation bilaterally and regular rate & rhythm Airway: Cervical ROM: WNL MP: 2 Dentition: Chipped and Other (missing, poor dentition) Additional comments: short neck, limited ROM CV/HEM: CV/HEM: CAD and HTN Comments: stent 2016 - doing well since then Metabolic: Metabolic: Morbid obesity Anesthetic Plan: ASA status: 3 Anesthesia: MAC Risk of > 500 ml blood loss (7ml/kg in children): No PFSH Anesthesia PFSH: Medical History Coronary artery disease involving autologous artery coronary bypass graft Gout Hyperlipidemia Hypertension Pneumonia Social History Smoking and tobacco status: former smoker Data Anesthesia Cardiac Studies: No Data to Display
--- NOTE | 2020-05-07 11:04 | W.PM.OPSUD ---
Surgery/Procedure H&P Update DATE OF PROCEDURE: May 07, 2020 DATE H&P PERFORMED: 04/19/20 H&P UPDATE INFORMATION: I have reviewed H&P completed within last 30 days, I have examined patient prior to procedure, No changes to prior documentation and H&P is in [facility] EMR on date indicated PREOP DIAGNOSIS: Osteomyelitis right great toe PLANNED PROCEDURE: Operation Date: 05/07/20 11:10 Proposed Procedures p Incision and debridement with removal of cement spacer right foot [id number] L97.514(Right) - Rafael Cardoza DPM
--- NOTE | 2020-05-07 11:08 | ANES.PREANE2 ---
Pre-Anesthetic Assessment Pre-Anesthetic Assessment: Height/Weight: Height 1.85 m Weight 136.078 kg Temp Pulse Resp BP Pulse Ox 97 F L 61 18 179/94 97 05/07/20 10:51 05/07/20 10:51 05/07/20 10:51 05/07/20 10:51 05/07/20 10:51 Preop Diagnosis: Osteomyelitis right great toe Proposed Procedure: Operation Date: 05/07/20 11:10 Proposed Procedures p Incision and debridement with removal of cement spacer right foot [id number] L97.514(Right) - Rafael Cardoza DPM Familial anesthetic complications: None Was Beta Jose taken within 24 hours: Yes Last intake: Intake Last Liquid Date 05/06/20 Last Liquid Time 22:30 Last Solid Date 05/06/20 Last Solid Time 22:30 Social: Social History: No alcohol and No tobacco Exam: Pre-Anes Outpt Exam: alert, oriented x 3, clear to auscultation bilaterally and regular rate & rhythm Airway: Cervical ROM: WNL Dentition: Other (poor dentition, broken, missing) Additional comments: short neck CV/HEM: CV/HEM: CAD and HTN Comments: stent 2016 - doing well since then Anesthetic Plan: ASA status: 3 Anesthesia: MAC Risk of > 500 ml blood loss (7ml/kg in children): No PFSH Anesthesia PFSH: Medical History Coronary artery disease involving autologous artery coronary bypass graft Gout Hyperlipidemia Hypertension Pneumonia Social History Smoking and tobacco status: former smoker Data Anesthesia Cardiac Studies: No Data to Display
[2020-05-07] MEDS: sodium chloride 0.9% 1,000 ML 30 ML IV (11:17)
[2020-05-07 11:53] VITALS: BP 130/76; PULSE 61; RESP 16; TEMP 36.6; O2SAT 96
[2020-05-07 12:01] VITALS: BP 113/66; PULSE 66; RESP 16; TEMP 36.6; O2SAT 97
--- NOTE | 2020-05-07 14:21 | P.OP_ITS ---
Operative Report Date of procedure: May 07, 2020 Pre-op Diagnosis: Osteomyelitis right great toe Procedure Done: Incision and debridement down to and including bone right foot CPT code 30244 Removal of antibiotic impregnated cement spacer right foot CPT code 69241 Implants: 4-0 Vicryl, 4-0 nylon Specimens removed/disposition: None Pathology: none sent Surgeon: Rafael Cardoza D.P.M. Portable Grinding Machine Operator: Renetta Anesthesia: MAC Estimated blood loss: 5 mL Tourniquet time: See intraoperative documentation. IV fluids: None Urine output: None Complications: None Condition: stable Disposition: PACU Brief History: Nondiabetic male with neuropathy with history of osteomyelitis right hallux status post incision and debridement with bone biopsy, PICC line with long-term antibiotic therapy and insertion of cement spacer impregnated with tobramycin. Patient has improved clinically and labs have improved with improved sed rate, CRP and white count. Radiographic findings shows retained cement spacer, this is an area that is prominent medially. Recommended incision and debridement with arthroplasty, removal spacer as a staged procedure. Risks include pain, bleeding, numbness, infection, persistent osteomyelitis. Need for amputation, need for surgical intervention and antibiotic therapy. Patient is agreeable wishes to proceed. Procedure: Under mild sedation the patient was brought to the operating room and placed on the operating table in supine position. A timeout was performed. Anesthesia was administered by the anesthesia service. Local anesthesia injected by myself 30 cc of 0.5 sent Marcaine plain in the right nail block fa shion. Well-padded pneumatic tourniquet applied to the right ankle. Right lower extremity was scrubbed, prepped and draped utilizing normal aseptic technique. Tourniquet was inflated to 250 mmHg. Attention was directed to the medial aspect of the right hallux where a linear longitudinal incision was made directly over the previous cicatrix. Dissection was carried down to periosteum and bone both at the medial aspect of the distal and proximal phalanx. Cement spacer was encountered this was excised and passed from operative field. Debridement down to bone was performed with contouring of bone and removal of all rough edges. Incision site was flushed with copious amounts of sterile saline solution. Subcutaneous tissue closed with 4-0 Vicryl. Skin closed with 4-0 nylon. Incision site was dressed with Adaptic, sterile 4 x 4, Kerlix and Terell wrap. Tourniquet was deflated and a prompt hyperemic response was noted to the distal digits of the right foot. Patient tolerated the procedure well and was transferred to the PACU with vital signs stable and vascular status intact. Following a period of postoperative monitoring he will be discharged home. He is to continue with his cam boot for minimal activity. His elevate his right foot while at rest. Was given postoperative instructions at discharge.
--- NOTE | 2020-05-07 16:29 | ANE.PACU2 ---
Inpatient post-anesthesia follow up: Airway intact: Yes Vital signs: Temperature 98 F Pulse Rate 66 Respiratory Rate 16 Blood Pressure 113/66 Pulse Oximetry 97 Oxygen Delivery Me thod Room Air Oxygen Flow Rate Fraction of Inspir ed Oxygen Hydration adequate: Yes Nausea and vomiting: No Pain level: 2 Mental status: Baseline
== END 2020-05-07 12:45 | disposition home or self-care (01) ==
PROVIDERS: PCP Family Medicine; Visit Provider Podiatrist Foot & Ankle Surgery
PROC: (CPT 11044; principal; 2020-05-07 11:00)
DX: M86.8X7 Other osteomyelitis, ankle and foot (principal); L97.514 Non-pressure chronic ulcer of other part of right foot with necrosis of bone; L03.031 Cellulitis of right toe; I25.10 Atherosclerotic heart disease of native coronary artery without angina pectoris; I10 Essential (primary) hypertension; Z95.5 Presence of coronary angioplasty implant and graft; E78.5 Hyperlipidemia, unspecified; Z87.891 Personal history of nicotine dependence; Z79.82 Long term (current) use of aspirin; G62.9 Polyneuropathy, unspecified
CPT/HCPCS: 11044; 11983; 12345; J2704; J3010; J7030

== ENCOUNTER → 2020-06-02 08:03 | Outpatient (BNVA) | payer MEDICARE, OTHER, SELFPAY | PROVIDERS: PCP Family Medicine; Visit Provider Podiatrist Foot & Ankle Surgery | DX: Z48.89 Encounter for other specified surgical aftercare (principal); L03.031 Cellulitis of right toe; L97.514 Non-pressure chronic ulcer of other part of right foot with necrosis of bone; M21.611 Bunion of right foot | CPT/HCPCS: 73630 ==

== ENCOUNTER 2021-08-08 16:19 | Outpatient (CLI) | payer MEDICARE, OTHER, SELFPAY ==
--- NOTE | 2021-08-08 16:32 | XR_ITS ---
WS: [id number] Right knee, AP and lateral views, 08/08/2021. Clinical Data: OSTEOARTHRITIS Knee, right Comparison: None. Findings: No fractures or dislocations are seen. There is medial joint compartment narrowing. There is spurring of the medial and lateral tibial plateau and the lateral femoral condyle. The patella shows posterio r irregularity with spurring and there is anterior spurring. The soft tissues are unremarkable. The soft tissues are normal. XR/XR knee RT 1-2V 98118 Impression: Moderate osteoarthritis of the right knee. Kellgren-Romeo Classification: grade 3 (moderate): moderate multiple osteoph ytes, definite narrowing of joint space and some sclerosis and possible deformi ty of bone ends
== END 2021-08-08 16:20 | disposition home or self-care (01) ==
PROVIDERS: PCP Family Medicine; Visit Provider Family Medicine
DX: M17.11 Unilateral primary osteoarthritis, right knee (principal)
CPT/HCPCS: 73560

== ENCOUNTER → 2021-08-19 12:56 | Outpatient (BNVA) | payer MEDICARE, OTHER, SELFPAY | PROVIDERS: PCP Family Medicine; Visit Provider Podiatrist Foot & Ankle Surgery | DX: L97.512 Non-pressure chronic ulcer of other part of right foot with fat layer exposed (principal); G62.9 Polyneuropathy, unspecified; Z87.891 Personal history of nicotine dependence | CPT/HCPCS: 11042 ==

== ENCOUNTER → 2021-09-15 11:31 | Outpatient (BNVA) | payer MEDICARE, OTHER, SELFPAY | PROVIDERS: PCP Family Medicine; Visit Provider Podiatrist Foot & Ankle Surgery | DX: M79.672 Pain in left foot (principal); G62.9 Polyneuropathy, unspecified; L97.523 Non-pressure chronic ulcer of other part of left foot with necrosis of muscle; M79.5 Residual foreign body in soft tissue; L84 Corns and callosities; S91.332A Puncture wound without foreign body, left foot, initial encounter; S90.852A Superficial foreign body, left foot, initial encounter; L03.116 Cellulitis of left lower limb; W26.8XXA Contact with other sharp object(s), not elsewhere classified, initial encounter; W45.8XXA Other foreign body or object entering through skin, initial encounter | CPT/HCPCS: 10121; 73630; 87070; 87075; 87077; 87186; 87205 ==

== ENCOUNTER → 2021-09-20 13:58 | Outpatient (BNVA) | payer MEDICARE, OTHER, SELFPAY | PROVIDERS: PCP Family Medicine; Visit Provider Podiatrist Foot & Ankle Surgery | DX: G62.9 Polyneuropathy, unspecified (principal); L97.523 Non-pressure chronic ulcer of other part of left foot with necrosis of muscle; M79.5 Residual foreign body in soft tissue; L84 Corns and callosities; S91.332A Puncture wound without foreign body, left foot, initial encounter; S90.852A Superficial foreign body, left foot, initial encounter; W26.8XXA Contact with other sharp object(s), not elsewhere classified, initial encounter; L03.116 Cellulitis of left lower limb | CPT/HCPCS: 99214 ==

== ENCOUNTER → 2021-10-14 14:09 | Outpatient (BNVA) | payer MEDICARE, OTHER, SELFPAY | PROVIDERS: PCP Family Medicine; Visit Provider Podiatrist Foot & Ankle Surgery | DX: G62.9 Polyneuropathy, unspecified (principal); L97.523 Non-pressure chronic ulcer of other part of left foot with necrosis of muscle; M79.5 Residual foreign body in soft tissue; L84 Corns and callosities; S91.332A Puncture wound without foreign body, left foot, initial encounter; S90.852A Superficial foreign body, left foot, initial encounter; L03.116 Cellulitis of left lower limb; X58.XXXA Exposure to other specified factors, initial encounter | CPT/HCPCS: 99213 ==

== ENCOUNTER → 2022-02-06 13:22 | Outpatient (BNVA) | payer MEDICARE, OTHER, SELFPAY | PROVIDERS: PCP Family Medicine; Visit Provider Family Medicine | DX: M25.571 Pain in right ankle and joints of right foot (principal); R73.9 Hyperglycemia, unspecified; I10 Essential (primary) hypertension; I25.810 Atherosclerosis of coronary artery bypass graft(s) without angina pectoris; E78.5 Hyperlipidemia, unspecified; R06.00 Dyspnea, unspecified | CPT/HCPCS: 80053; 80061; 83036 ==

== ENCOUNTER 2022-03-15 09:26 | Outpatient (CLI) | payer MEDICARE, OTHER, SELFPAY ==
--- NOTE | 2022-03-15 09:45 | USCV_ITS ---
Damon Padron Age: 71 Gender: M : 1950 Exam Date: 03/15/2022 09:37 Ordering Phys: Glen Murillo MD Technologist: RODNEY [place] [facility] [place]: cad, sob BP: 170 / 90 HR: 67 Rhythm: Other Technical Quality: Adequate MEASUREMENTS (Male / Female) Normal Values 2D ECHO LV Diastolic Diameter PLAX 3.0 cm 4.2 - 5.9 / 3.9 - 5.3 cm LV Systolic Diameter PLAX 1.9 cm IVS Diastolic Thickness 1.4 cm 0.6 - 1.0 / 0.6 - 0.9 cm IVS Systolic Thickness 2.0 cm LVPW Diastolic Thickness 1.7 cm 0.6 - 1.0 / 0.6 - 0.9 cm LVPW Systolic Thickness 2.5 cm LVOT Diameter 2.1 cm LV Ejection Fraction 2D Teich 66.1 % LV Ejection Fraction MOD 2C 63.1 % LV Ejection Fraction 2C AL 64.4 % LA Width 5.1 cm LA Height 6.9 cm RA Width 4.3 cm RA Height 7.1 cm Aorta at Sinotubular Diameter 3.4 cm IVC Diameter 2.0 cm M-MODE MV E Point Septal Separation 0.4 cm DOPPLER AV Peak Velocity 162.0 cm/s LVOT Peak Velocity 72.0 cm/s AV Area Cont Eq vti 1.8 cm squared AV Area Cont Eq pk 1.5 cm squared MV Peak Velocity 106.0 cm/s MV Area PHT 3.2 cm squared Mitral E to A Ratio 1.1 MV E' Velocity 42.5 cm/s Mitral E to MV E' Ratio 8.6 Mitral E to LV E' Lateral Ratio 7.9 Mitral E to LV E' Septal Ratio 9.6 TR Peak Velocity 288.0 cm/s TR Peak Gradient 33.2 mmHg Right Atrial Pressure 3.0 mmHg Pulmonary Artery Systolic Pressu 36.2 mmHg PV Peak Velocity 129.0 cm/s RV Acceleration Time 0.2 s RV Ejection Time 0.4 s RV AcT/ET 0.5 FINDINGS Left Ventricle Left ventricle is normal size. LV systolic function is normal with EF of 55 to 60%. No regional wall motion abnormalities are seen. Right Ventricle Normal in size and function Right Atrium Normal in size Left Atrium Dilated Mitral Valve Structurally normal mitral valve. Mild mitral regurgitation. No significant stenosis Aortic Valve Structurally normal aortic valve. No significant stenosis or regurgitation. Tricuspid Valve Trace tricuspid regurgitation. RVSP is 35 to 40 mmHg. This is consistent with mild pulmonary hypertension Pulmonic Valve Not well visualized Pericardium Normal Aorta Normal in size IVC Appears to be normal CONCLUSIONS LV systolic function is normal with EF of 55-60% Left atrial enlargement Mild mitral regurgitation. Trace tricuspid regurgitation. Mild pulmonary hypertension No comparison studies are available Alek Cherry MD (Electronically Signed) Final Date: 24 March 2022 10:23 S
== END 2022-03-15 09:27 | disposition home or self-care (01) ==
LOC: RAD 09:27
PROVIDERS: PCP Family Medicine; Visit Provider Family Medicine
DX: I25.10 Atherosclerotic heart disease of native coronary artery without angina pectoris (principal); R06.02 Shortness of breath; I08.1 Rheumatic disorders of both mitral and tricuspid valves; I27.20 Pulmonary hypertension, unspecified
CPT/HCPCS: 93306

== ENCOUNTER 2022-04-17 07:28 | Outpatient (CLI) | payer MEDICARE, OTHER, SELFPAY ==
[2022-04-17 07:53] VITALS: BMI 40.6
--- NOTE | 2022-04-17 08:42 | ECG_ITS ---
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 Interpretive Statements NAME OF STUDY: EXERCISE SESTAMIBI STRESS TEST INDICATION: Increasing dyspnea on exertion Baseline blood pressure of 183/96 mm Hg, heart rate of 60 beats per minute. EKG showed sinus rhythm normal axis with normal ST-Ts. The patient exercised for 2 minutes 49 seconds on a standard Evaristo protocol. Patient attained a maximum heart rate of 138 beats per minute(92% of the maximum predicted heart rate). Blood pressure at peak exercise was not checked. The EKG at the peak exercise revealed [address] depression in leads II, III, aVF, V5 and V6. T wave inversion in lead III, and biphasic T waves in lead II and aVF. Patient did not have any chest pain or any significant arrhythmis with the exercise. The study was terminated due to maximal effort. During the recovery phase, there were no new changes. Isolated PVCs noted in recovery. Blood pressure at the end of the recovery phase was not checked with a heart rate of 81 beats per minute. CONCLUSION: 1. Equivocal EKG response to treadmill exercise. 2. No exercise-induced chest pain or cardiac arrhythmia. 3. Fair exercise tolerance, attained a maximum of 4.6 METs. 4. Baseline hypertension. 5. Perfusion scan will be documented separately. Electronically Signed On 04-20-2022 9:52:31 SENIOR DESIGN ENGINEERING SPECIALIST by Kellie Kirk M.D. [id number]
--- NOTE | 2022-04-17 08:43 | NMCV_ITS ---
NM kajal perf SPECT r/s* [id number] Damon Padron Age: 71 Gender: M : 1950 Exam Date: 04/17/2022 08:43 Ordering Phys: Glen Murillo MD Technologist: ROLAND Ling Exam Location: [facility] Indications: SHORTNESS OF BREATH STRESS TEST Please see separate stress test report in [facility] for full findings IMAGE PROTOCOL Rest/Stress 1 Exercise Day Radiopharmaceutical Dose (mCi) Administration Site Administered by Rest: Tc-99m 10.7 IV ROLAND Ling Sestamibi Stress:Tc-99m 33.0 IV ROLAND Tolliver Sestamibi Rest: 17-Apr-2022 60 Discovery 630 Stress: 17-Apr-2022 15 Discovery 630 Radiopharmaceutical was injected at 86 % maximum heart rate. Supine position only as patient was unable to lay prone. SPECT RESULTS Technical Quality: Excellent Raw Data Analysis: Normal Image Corrections: No attenuation or motion correction applied Summed Stress Score: 2 Summed Rest Score: 0 Summed Difference Score: 2 PERFUSION FINDINGS Very small sized perfusion abnormality of mild severity of apical lateral wall on stress images. FUNCTIONAL RESULTS (calculated via Gated SPECT) Stress Image LV EF (%): 46 Stress EDV (mL):186 TID: 1.01 Stress ESV (mL):100 FUNCTIONAL FINDINGS: The left ventricle is normal in size. Transient Ischemia Dilatation of 1. The left ventricular ejection fraction is mildly reduced with a value of 46%. There is mild global hypokinesis. Increased end-diastolic end-systolic volumes. IMPRESSIONS 1. Very small sized perfusion abnormality of mild severity of apical lateral wall. This may represent small area of ischemia in LAD/circumflex artery territory. In absence of prone imaging attenuation artifact cannot be completely ruled out. 2. The left ventricular ejection fraction is mildly reduced with a value of 46%. 3. There is mild global hypokinesis. 4. EKG portion of the study will be reported separately. Kellie Kirk MD (Electronically Signed) Final Date: 19 April 2022 12:27 S
[2022-04-17 09:30] VITALS: BP 183/96; PULSE 81
== END 2022-04-17 07:29 | disposition home or self-care (01) ==
PROVIDERS: PCP Family Medicine; Visit Provider Family Medicine
DX: R06.00 Dyspnea, unspecified (principal)
CPT/HCPCS: 36415; 78452; 93017; 96374; A9500

== ENCOUNTER 2022-07-10 14:33 | Observation (INO) | payer MEDICARE, OTHER, SELFPAY ==
[2022-07-10 14:39] VITALS: BP 179/95; PULSE 71; RESP 18; TEMP 36.6; O2SAT 97
--- NOTE | 2022-07-10 17:13 | CTR_ITS ---
PROCEDURE INFORMATION: Exam: CT Chest Without Contrast; Diagnostic Exam date and time: 07/10/2022 5:47 PM Age: 71 years old Clinical indication: Other: Dysphagia; Prior surgery; Surgery type: Stents; Additional info: Dysphagia, possble esophageal foreign body - chunk of meat TECHNIQUE: Imaging protocol: Diagnostic computed tomography of the chest without contrast. Radiation optimization: All CT scans at this facility use at least one of these dose optimization techniques: automated exposure control; mA and/or kV adjustment per patient size (includes targeted exams where dose is matched to clinical indication); or iterative reconstruction. REPORTING DATA: Count of CT and Cardiac NM exams in prior 12 months: This patient has received [address] and 0 known cardiac nuclear medicine studies in the 12 months prior to the current study. COMPARISON: CR XR chest 1V portable [id number] 02/20/2020 11:14 AM RADIATION DOSE METRICS: Total DLP (mGy-cm): 895.39 FINDINGS: Lungs: Bibasilar atelectasis versus infiltrate. Pleural spaces: Unremarkable. No pneumothorax. No pleural effusion. Heart: Unremarkable. No cardiomegaly. No pericardial effusion. Coronary arteries: Coronary artery atherosclerotic calcifications. Mediastinal space: Distal esophagus contains apparent fluid density extending for a length of 4 cm, perhaps related to history of suspected foreign body. Distal esophageal mild wall thickening, please correlate for possible esophagitis. Lymph nodes: Scattered prominent subcentimeter short axis mediastinal lymph nodes, nonspecific. Vasculature: Unremarkable. No aortic aneurysm. Bones/joints: Unremarkable. No acute fracture. Soft tissues: Unremarkable. CT/CT chest wo con [id number] IMPRESSION: 1. Distal esophagus contains apparent fluid density extending for a length of 4 cm, perhaps related to history of suspected foreign body. 2. Distal esophageal mild wall thickening, please correlate for possible esophagitis. 3. Bibasilar atelectasis versus infiltrate. 4. Coronary artery atherosclerotic calcifications. 5. Scattered prominent subcentimeter short axis mediastinal lymph nodes, nonspecific.
--- NOTE | 2022-07-10 17:15 | W.ED.GENADLT ---
HPI - General Adult General: Chief complaint: Airway/Esophagus Foreign Body Stated complaint: Something in throat Time Seen by Provider: 07/10/22 16:57 History of Present Illness: Presents to the ER with complaints of possible foreign body in esophagus. Patient's reports he was eating pork for lunch yesterday and got a chunk of meat stuck in his esophagus. Patient is unable to drink any liquids as he says they go down and immediately come right back up. Patient is sitting up in his bed in no acute distress. Patient states he has had this happen before but it resolved on his own. MD complaint: Esophageal foreign body Onset (ago): day(s) (Yesterday) Quality: burning Pain Consistency: constant Relieving factors: none Exacerbating factors: eating Associated symptoms: Reports no associated symptoms; Deny chest pain, dyspnea, headache(s), nausea, rash, palpitations or vomiting Treatments prior to arrival: none Review of Systems General: Reports: 10 or more systems reviewed and unremarkable except in HPI and below Const: Denies: fever(s), chills or body aches Eyes: Denies: change in vision ENMT: Denies: throat pain or odynophagia Card: Denies: chest pain, palpitations or irregular heart rhythm Resp: Denies: dyspnea, productive cough or non-productive cough GI: Denies: abdominal pain, nausea or vomiting : Denies: flank pain, difficulty urinating or dysuria Musc: Denies: neck pain, back pain or extremity pain Skin/Breast: Denies: rash, pruritus or erythema Neuro: Denies: headache(s), numbness in extremities or weakness in extremities Psych: Denies: anxiety or depression Endo: Denies: polyuria, polydipsia or tired all the time Alfredo/Lymph: Denies: easy bruising, easy bleeding or petechiae All/Imm: Denies: urticaria, throat swelling or tongue swelling PFSH ED PFSH: Medical History Coronary artery disease involving autologous artery coronary bypass graft Gout Hyperlipidemia Hypertension Pneumonia Social History Smoking and tobacco status: former smoker Physical Exam Const: COMMON NORMALS: no acute distress, average body habitus, patient oriented x3, no limitations, healthy appearing, alert and well nourished HENMT: COMMON NORMALS: normocephalic, atraumatic, hearing grossly normal bilaterally and moist oral mucous membranes HEAD & SCALP: normocephalic and atraumatic Eye: COMMON NORMALS: Equal, round and reactive pupils present, EOMs intact bilaterally and conjunctivae normal CONJUNCTIVA: Yes conjunctivae normal PUPIL: Yes Equal, round and reactive pupils present Neck/C-Spine: COMMON NORMALS: full ROM, no lymphadenopathy, supple and no JVD Lymph: LYMPHATIC: no lymphadenopathy noted Chest: COMMONS NORMALS: normal inspection of the chest Resp: COMMON NORMALS: normal respiratory effort, No retractions, No use of accessory muscles and clear to auscultation bilaterally AUSCULTATION: clear to auscultation bilaterally Cardio: COMMON NORMALS: no JVD, regular rate, regular rhythm, S1 normal heart sound present and S2 normal heart sound present RATE: regular rate RHYTHM: regular rhythm HEART SOUNDS: S1 normal heart sound present and S2 normal heart sound present GI: COMMON NORMALS: Normal to inspection, nondistended, normoactive bowel sounds present, Soft to palpation, non-tender and No hepatosplenomegaly present PALPATION: Yes Soft to palpation and Yes No hepatosplenomegaly present : COMMON NORMALS: Yes no CVA tenderness BLADDER/KIDNEY EXAM: Yes no CVA tenderness Back/Pelvis: COMMON NORMALS: no CVA tenderness Neuro: COMMON NORMALS: patient oriented x3, CN's II-XII intact bilaterally, moves all extremities, no focal motor deficits and no sensory deficits noted SENSORIUM/ORIENTATION: Yes alert Course Vital Signs: Vital signs: Vital Signs Temperature 97.9 F 07/10/22 14:39 Pulse Rate 64 07/10/22 20:58 Respiratory Rate 16 07/10/22 20:58 Blood Pressure 160/91 07/10/22 20:58 Pulse Oximetry 99 07/10/22 20:58 Oxygen Delivery Me thod 07/10/22 20:58 [facility] - General Adult Medical Decision Making Patient presents to the ER with complaints of a possible food bolus since lunch yesterday. CT of the chest was obtained which did show 4 cm fluid collection consistent with possible food bolus. Dr. Marroquin surgeon was called who asked that we try a dose of IV glucagon first if that does not resolve the problem he is available to putting the patient in for observation and doing endoscopy for second morning. This was discussed with the patient and patient's who are in agreements with this. Patient was given 1 mg IV glucagon and then we waited approximately 20 minutes and reassessed the patient. Patient did not feel any movement of the food bolus but was willing to try a drink of water. Patient took 1 sip of water swallowed it and it immediately come right back up. Patient will be admitted for observation and for Dr. Marroquin to perform endoscopy on him in the morning Differential Diagnosis Esophageal spasm, dysphagia, food bolus Lab Data Radiology Impressions Chest CT 07/10/22 17:13 IMPRESSION: 1. Distal esophagus contains apparent fluid density extending for a length of 4 cm, perhaps related to history of suspected foreign body. 2. Distal esophageal mild wall thickening, please correlate for possible esophagitis. 3. Bibasilar atelectasis versus infiltrate. 4. Coronary artery atherosclerotic calcifications. 5. Scattered prominent subcentimeter short axis mediastinal lymph nodes, nonspecific. Discharge Plan Discharge Patient Disposition: Admitted As Inpatient Admit Provider: Eric Rodriguez Clinical Impression: Esophageal abnormality, Dysphagia Condition: Stable Coding Level of Care Code ED [place] Guide for Kavita Chambers
[2022-07-10 19:28] VITALS: BP 181/94; PULSE 65; RESP 16; O2SAT 99
[2022-07-10 20:58] VITALS: BP 160/91; PULSE 64; RESP 16; O2SAT 99
[2022-07-10 21:29] VITALS: BP 174/85; PULSE 63; RESP 17; TEMP 36.8; O2SAT 98
--- NOTE | 2022-07-10 22:18 | PC.NURSE ---
Report called to Abdullahi on Med-surg @[id number]
[2022-07-10] MEDS: sodium chloride 0.9% 1,000 ML 75 ML IV (22:42)
[2022-07-11] VITALS (9 sets, daily range): BP systolic 134–178; BP diastolic 69–85; PULSE 51–61; RESP 15–18; TEMP 36.2–37.1; O2SAT 97–99
--- NOTE | 2022-07-11 07:00 | ANES.PREANE2 ---
Pre-Anesthetic Assessment Height/Weight: Height 1.83 m Weight 136.078 kg Temp Pulse Resp BP Pulse Ox O2 Del Method 98.8 F 61 15 154/76 99 07/11/22 04:00 07/11/22 04:00 07/11/22 04:00 07/11/22 04:00 07/11/22 04:00 07/11/22 04:00 Preop Diagnosis: Foreign Body in Esophagus Operation Date: 07/11/22 07:00 Proposed Procedures p EGD(Not Applicable) - Jhon Marroquin DO Familial anesthetic complications: none Last intake: Intake Last Liquid Date 07/10/22 Last Liquid Time 10:00 Last Solid Date 07/10/22 Last Solid Time 10:00 Social No alcohol and No tobacco Exam alert, oriented x 3, clear to auscultation bilaterally and regular rate & rhythm Airway Submandibular: within normal limits Cervical ROM: within normal limits Mallampati: Class I Comments: Comments: very poor dentition Pulmonary Shortness of Breath CV/HEM Stable Angina, Coronary Artery Disease, Hypertension and Myocardial Infarction scheduled for 4 vessel CABG in [place] 07/12/22 None reported Hepatic None reported GI Gastroesophageal Reflux Disease food bolus Metabolic Hyperlipidemia and Morbid Obesity [facility] [place] Osteoarthritis/DJD Neuropsych None reported Anesthetic Plan ASA status: 4E Anesthesia: General Medications/Allergies Home Medications Medication Instructions Recorded Confirmed Last Taken Type aspirin 325 mg tablet 325 mg PO DAILY 02/20/20 02/06/22 03/31/20 History vitamin E 268 mg (400 unit) capsule 400 unit PO DAILY 02/20/20 02/06/22 03/31/20 History Vitamin A To Z 1 cap PO DAILY 05/06/20 02/06/22 Unknown History allopurinol 300 mg tablet 300 mg PO DAILY PRN gout #90 tabs 02/06/22 02/06/22 Unknown Rx atorvastatin 10 mg tablet 10 mg PO DAILY #90 tabs 02/06/22 02/06/22 Unknown Rx benazepril 20 mg tablet 20 mg PO DAILY #90 tabs 02/06/22 02/06/22 Unknown Rx diltiazem HCl 120 mg 120 mg PO DAILY #90 caps 02/06/22 02/06/22 Unknown Rx capsule,extended release 24 hr, controlled (DILT-XR) meloxicam 15 mg tablet 15 mg PO DAILY 30 days #90 tabs 02/06/22 02/06/22 Unknown Rx metoprolol succinate 25 mg 25 mg PO BID #180 tabs 02/06/22 02/06/22 Unknown Rx tablet,extended release 24 hr pantoprazole 40 mg tablet,delayed 40 mg PO BID 6 weeks #84 tabs 07/11/22 07/11/22 Unknown Rx release (Protonix) sucralfate 100 mg/mL oral 1 g (10 mL) PO BID 4 weeks #560 mL 07/11/22 07/11/22 Unknown Rx suspension (Carafate) Allergies Allergy/AdvReac Type Severity Reaction Status Date / Time No Known Allergies Allergy Verified 07/10/22 14:41 Current Medications Generic Name Dose Route Start Last Admin Trade Name Freq PRN Reason Stop Dose Admin Sodium Chloride 1,000 mls @ 75 mls/hr 07/10/22 21:30 07/10/22 22:42 Sodium Chloride 0.9% IV 75 mls/hr .[id number] FRANDY Administration PFSH Anesthesia Medical History Coronary artery disease involving autologous artery coronary bypass graft Gout Hyperlipidemia Hypertension Pneumonia Social History Smoking and tobacco status: former smoker Data Anesthesia Cardiac Studies: Echocardiogram 03/15/22 Sestamibi Stress Test (Cardiology) 04/17/22
[2022-07-11] MEDS: sodium chloride 0.9% 1,000 ML 30 ML IV (07:05)
--- NOTE | 2022-07-11 07:12 | PM.HP ---
Providers/Chief Complaint Admitting Physician: Eric Rodriguez Primary Care Provider: Glen Murillo MD Chief Complaint: Something in throat History of Present Illness Damon Padron is a 71 year old male, who is scheduled for a CABG tomorrow, presents with a 1 day history of inability to swallow foods or liquids after eating roast beef for lunch the day before. He reports that he is able to swallow his saliva. Denies any chest pain, nausea, emesis. Review of Systems General: Reports: 10 or more systems reviewed and unremarkable except in HPI and below Medications/Allergies Home Medications Medication Instructions Recorded Confirmed Last Taken Type aspirin 325 mg tablet 325 mg PO DAILY 02/20/20 02/06/22 03/31/20 History vitamin E 268 mg (400 unit) capsule 400 unit PO DAILY 02/20/20 02/06/22 03/31/20 History Vitamin A To Z 1 cap PO DAILY 05/06/20 02/06/22 Unknown History allopurinol 300 mg tablet 300 mg PO DAILY PRN gout #90 tabs 02/06/22 02/06/22 Unknown Rx atorvastatin 10 mg tablet 10 mg PO DAILY #90 tabs 02/06/22 02/06/22 Unknown Rx benazepril 20 mg tablet 20 mg PO DAILY #90 tabs 02/06/22 02/06/22 Unknown Rx diltiazem HCl 120 mg 120 mg PO DAILY #90 caps 02/06/22 02/06/22 Unknown Rx capsule,extended release 24 hr, controlled (DILT-XR) meloxicam 15 mg tablet 15 mg PO DAILY 30 days #90 tabs 02/06/22 02/06/22 Unknown Rx metoprolol succinate 25 mg 25 mg PO BID #180 tabs 02/06/22 02/06/22 Unknown Rx tablet,extended release 24 hr Allergies Allergy/AdvReac Type Severity Reaction Status Date / Time No Known Allergies Allergy Verified 07/10/22 14:41 PFSH Acute PFSH: Medical History Coronary artery disease involving autologous artery coronary bypass graft Gout Hyperlipidemia Hypertension Pneumonia Social History Smoking and tobacco status: former smoker Vitals/I&O/Wt Last Vital Signs Temp 97.6 F 07/11/22 07:07 Pulse 57 L 07/11/22 07:07 Resp 18 07/11/22 07:07 BP 178/85 07/11/22 07:07 Pulse Ox 98 07/11/22 07:07 O2 Del Method 07/11/22 07:07 Weight last 48 hrs Weight 300 lb Physical Exam Narrative: General : Patient is well developed , no acute distress, oriented x3 Head : Normal cephalic, a-traumatic. Ears : Pinnae and external canal are normal. Hearing is normal. Eyes : PERRLA, Sclera and injection are normal. No conjunctival discharge. Nose : Mucous membranes are without erythema. Throat : buccal mucosa is normal, gums are without significant recession or hypertrophy. Lungs : Equal chest rise bilaterally, no use of accessory muscles, trachea is midline. Cor : Rate and rhythm are normal. Abdomen : Soft, ND, NT, no g/r/m Extremities : No edema, no cyanosis or clubbing, dorsalis pedis pulses are present bilaterally, non-tender to palpation of calves. Upper extremities are normal bilaterally. Back : non-tender to palpation, no CVA tenderness. Neuro : CN II - XII intact, Upper and lower extremities have equal and full strength A&P Assessment and plan (1) Esophageal obstruction due to food impaction: Plan EGD The risks and benefits of the procedure, including bleeding, infection, intestinal perforation requiring surgery, missed lesion were explained to the patient. The patient is understanding of the risks and wishes to proceed. He is at increased risk to esophageal injury because of this procedure. He is also at much higher risk for bleeding during heparinization for his CABG tomorrow. I have explained all of this to him. Attestations Medical Necessity Statement*: Plan to discharge after procedure Coding Level of Care Code Acute Code for Chg Fwd Diagnoses Esophageal obstruction due to food impaction K22.2; T18.128A
--- NOTE | 2022-07-11 07:57 | P.DS_ITS ---
Discharge Providers Date of Admission: 07/10/22 21:42 Date of Discharge: July 11, 2022 Attending Provider at Admission: Eric Rodriguez Attending Provider at Discharge: Eric Rodriguez Primary Care Provider: Glen Murillo MD Diagnoses at Discharge Discharge Diagnosis (1) Esophageal obstruction due to food impaction: Status: Acute Reason for Visit Reason for Visit: Something in throat Hospital Course Hospital Course This is a 71-year-old gentleman who presented with an esophageal food bolus. He is scheduled for CABG at [facility] tomorrow. The food impaction was cleared with EGD. He was found to have multiple superficial nonbleeding ulcers throughout his stomach. He was discharged home on a full liquid diet with Protonix twice daily and sucralfate twice daily. Physical Exam Narrative: General : Patient is well developed , no acute distress, oriented x3 Head : Normal cephalic, a-traumatic. Ears : Pinnae and external canal are normal. Hearing is normal. Eyes : PERRLA, Sclera and injection are normal. No conjunctival discharge. Nose : Mucous membranes are without erythema. Throat : buccal mucosa is normal, gums are without significant recession or hypertrophy. Lungs : Equal chest rise bilaterally, no use of accessory muscles, trachea is midline. Cor : Rate and rhythm are normal. Abdomen : Soft, ND, NT, no g/r/m Extremities : No edema, no cyanosis or clubbing, dorsalis pedis pulses are present bilaterally, non-tender to palpation of calves. Upper extremities are normal bilaterally. Back : non-tender to palpation, no CVA tenderness. Neuro : CN II - XII intact, Upper and lower extremities have equal and full strength Discharge Data Studies Completed and Pending Completed Studies During Hospitalization Category Date Time Status CT chest con [id number] Stat Cat Scan 07/10/22 17:13 Completed Radiology Impressions Chest CT 07/10/22 17:13 IMPRESSION: 1. Distal esophagus contains apparent fluid density extending for a length of 4 cm, perhaps related to history of suspected foreign body. 2. Distal esophageal mild wall thickening, please correlate for possible esophagitis. 3. Bibasilar atelectasis versus infiltrate. 4. Coronary artery atherosclerotic calcifications. 5. Scattered prominent subcentimeter short axis mediastinal lymph nodes, nonspecific. Procedures Performed EGD with removal of foreign body Vitals Last Vital Signs Temp 97.4 F L 03/14/23 07:51 Pulse 52 L 07/11/22 07:55 Resp 16 07/11/22 07:55 BP 146/78 07/11/22 07:55 Pulse Ox 97 07/11/22 07:55 O2 Del Method 07/11/22 07:55 Discharge Plan Discharge Patient Disposition: Home Condition: Stable Prescriptions: New Protonix 40 mg tablet,delayed release (DR/EC) 40 mg PO BID 42 Days Qty: 84 0RF Carafate 100 mg/mL suspension 1 g PO BID 28 Days Qty: 560 0RF Continued allopurinol 300 mg tablet 300 mg PO DAILY PRN (Reason: gout) Qty: 90 3RF atorvastatin 10 mg tablet 10 mg PO DAILY Qty: 90 3RF benazepril 20 mg tablet 20 mg PO DAILY Qty: 90 3RF diltiazem HCl [DILT-XR] 120 mg capsule,ext.rel 24h degradable 120 mg PO DAILY Qty: 90 3RF metoprolol succinate 25 mg tablet extended release 24 hr 25 mg PO BID Qty: 180 3RF vitamin E 400 unit Capsule 400 unit PO DAILY Vitamin A To Z 1 cap PO DAILY Held meloxicam 15 mg tablet 15 mg PO DAILY 30 Days Qty: 90 3RF Hold Instructions: Resume on 07/14/22. aspirin 325 mg Tablet 325 mg PO DAILY Hold Instructions: Resume on 07/14/22. Discharge Orders: Discharge Order (Routine); Ordered 07/11/22 Ordered By: Jhon Marroquin Referrals: Jhon Marroquin DO [Physician] - 2 weeks Glen Murillo MD [Primary Care Provider] - 4-7 days Discharge Diet: Full LIquid Discharge Activity: Resume usual activity Patient Instructions: GI Discharge Instructions, Opioid Safety Discharge Attestations Time Spent in Discharge Care*: less than 30 min Quality Metrics Clinical Quality Measures [ No reported AMI, CVA or VTE this stay] Coding Level of Care Code Acute Code for Chg Fwd Diagnoses Esophageal obstruction due to food impaction K22.2; T18.128A
--- NOTE | 2022-07-11 10:22 | PC.CHAP ---
Pastoral Care Encounter/Spiritual Assessment Type of Contact [] Declined trousseau consultant visit [] Patient/Family/Request visit [] Outpatient visit [] Follow-up visit [] Physician referral [] Code/Alert [] Routine visit [] Staff referral [] Actively dying [x] Patient sleeping [] Family support [] [] Out of room [] Palliative care [] [] Receiving care in room [] Pre-surgical visit [] Trauma [] Long length of stay [] ICU visit [] Other: Relational/Emotional Strength [] Patient feels connected with others/family/visitors/staff [] Distress [] Loneliness/isolation [] Abandonment Spirituality of Patient [] Person of Alla [] Attends Anabaptist of their Alla [] Believes in Prayer [] Reads Bible or Pentecostal materials [] There are Spiritual issues to be addressed Director Of Strategic Communications Interventions [] Prayer [] Active listening [] Non-anxious presence [] Spiritual/emotional support [] Crisis/trauma care [] Spiritual counseling [] Bereavement support [] Provided bereavement packet [] Provided Bible/devotional materials [] Provided toy/stuffed animal, coloring book to patient or family member [] Provided Communion [] Anointing/[place] [] Salvation [] Completed spiritual assessment [] Other: Impact on Illness or Injury [] Angry [] Fearful [] Anxious [] Often cries [] Exhaustion [] Unable to work [] Unable to attend voodoo [] Unable to walk/stand [] Unable to read [] Unable to drive [] Unable to eat/drink [] Unable to sleep [] Unable to be with family [] Patient intubated [] Other: Summary Time spent with patient
--- NOTE | 2022-07-11 14:00 | ANE.PACU2 ---
Inpatient post-anesthesia follow up: Airway intact: Yes Vital signs: Temperature 97.1 F Pulse Rate 51 Respiratory Rate 18 Blood Pressure 160/70 Pulse Oximetry 98 Oxygen Delivery Me thod Room Air Oxygen Flow Rate Fraction of Inspir ed Oxygen Hydration adequate: Yes Nausea and vomiting: No Pain level: 2 Mental status: Baseline
== END 2022-07-11 11:20 | disposition home or self-care (01) ==
LOC: ER 21:28 → MEDSURG 21:43
PROVIDERS: Surgery; Admitting Provider Internal Medicine; Emergency Provider Emergency Medicine; PCP Family Medicine; Visit Provider Internal Medicine
PROC: 0DJ08ZZ Inspection of Upper Intestinal Tract, Via Natural or Artificial Opening Endoscopic (ICD-10-PCS; CPT 43235; principal; 2022-07-11 07:00)
DX: T18.128A Food in esophagus causing other injury, initial encounter (principal); Y93.9 Activity, unspecified; K22.2 Esophageal obstruction; Z79.82 Long term (current) use of aspirin; E78.5 Hyperlipidemia, unspecified; I10 Essential (primary) hypertension; Z87.891 Personal history of nicotine dependence; K21.9 Gastro-esophageal reflux disease without esophagitis; E66.01 Morbid (severe) obesity due to excess calories; Z68.41 Body mass index [BMI] 40.0-44.9, adult
CPT/HCPCS: 71250; 96361; 96374; 99285; G0378; J0330; J1610; J2370; J2405; J2704; J3010; J3490; J7030

== ENCOUNTER → 2022-08-08 08:59 | Outpatient (BNVA) | payer MEDICARE, OTHER, SELFPAY | PROVIDERS: PCP Family Medicine; Visit Provider Family Medicine | DX: I10 Essential (primary) hypertension (principal); Z95.1 Presence of aortocoronary bypass graft | CPT/HCPCS: 80053; 85025; 99203 ==

== ENCOUNTER → 2023-02-20 09:02 | Outpatient (BNVA) | payer MEDICARE, OTHER, SELFPAY | PROVIDERS: PCP Family Medicine; Visit Provider Family Medicine | DX: I10 Essential (primary) hypertension (principal); I25.810 Atherosclerosis of coronary artery bypass graft(s) without angina pectoris | CPT/HCPCS: 80053; 80061; 85025 ==

== ENCOUNTER → 2023-08-21 08:18 | Outpatient (BNVA) | payer MEDICARE, OTHER, SELFPAY | PROVIDERS: PCP Family Medicine; Visit Provider Family Medicine | DX: I25.810 Atherosclerosis of coronary artery bypass graft(s) without angina pectoris (principal); E78.5 Hyperlipidemia, unspecified; I10 Essential (primary) hypertension | CPT/HCPCS: 80053; 80061; 84550; 85025 ==

== ENCOUNTER → 2024-08-13 08:48 | Outpatient (BNVA) | payer MEDICARE, OTHER, SELFPAY | PROVIDERS: PCP Family Medicine; Visit Provider Family Medicine | DX: I10 Essential (primary) hypertension (principal); E78.5 Hyperlipidemia, unspecified; I25.810 Atherosclerosis of coronary artery bypass graft(s) without angina pectoris; T07.XXXA Unspecified multiple injuries, initial encounter; L08.9 Local infection of the skin and subcutaneous tissue, unspecified; X58.XXXA Exposure to other specified factors, initial encounter | CPT/HCPCS: 80053; 80061; 84550; 85025 ==